=== PATIENT | female | born 2000 | race Caucasian/White ===

== ENCOUNTER 2018-07-26 09:07 | Inpatient (IN) | payer OTHER ==
[2018-07-26] MEDS ORDERED: LORAZEPAM INJ 2 MG/1 ML VIAL IV ONE (09:25)
[2018-07-26 09:33] LABS: ABSOLUTE LYMPHOCYTES (AUTO) 1.6 10^3/uL (0.5-4.7); ABSOLUTE MONOCYTES (AUTO) 0.5 10^3/uL (0.1-1.4); ABSOLUTE NEUT (AUTO) 5.1 10^3/uL (1.7-8.2); BASOPHILS % (AUTO) 0.4 % (0-2); EOSINOPHILS % (AUTO) 0.1 % (0-6); HEMATOCRIT 38.4 % (36.0-47.0); HEMOGLOBIN 13.5 g/dL (12.0-15.5); LYMPHOCYTES % (AUTO) 22.6 % (13-45); MEAN CORPUSCULAR HEMOGLOBIN 30.2 pg (27.0-33.4); MEAN CORPUSCULAR HGB CONC 35.2 g/dL (32.0-36.0); MEAN CORPUSCULAR VOLUME 86 fl (80-97); PLATELET COUNT 267 10^3/uL (150-450); RED BLOOD COUNT 4.47 10^6/uL (3.72-5.28); RED CELL DISTRIBUTION WIDTH 12.3 % (11.5-14.0); SEGMENTED NEUTROPHILS % (AUTO) 69.9 % (42-78); TOTAL CELLS COUNTED % (AUTO) 100 %; WHITE BLOOD COUNT 7.3 10^3/uL (4.0-10.5)
--- NOTE | 2018-07-26 09:39 | ER Document Report ---
ED Psych Disorder / Suicide - General Stated Complaint: POSSIBLE OVERDOSE Time Seen by Provider: 07/26/18 09:30 Notes: Patient brought in because she reportedly took an overdose of her Celexa this morning. She had an argument with her boyfriend and took both Celexa 20 mg and Celexa 10 mg pills about 7 AM this morning. There were unknown quantities of each of these pills, but both of them are completely empty at this time. She also took a large number of Motrin tablets. Patient says that she is from [place] and visiting her boyfriend here who is in the . She denies any history of any medical problems except for depression. Denies ever having s eizures. As I was entering the room to obtain history from the patient, she began a full- blown grand mal seizure. This lasted for about 30 seconds. Her heart rate went up to about 150. O2 sat very temporarily dropped to 40s, but came right back up to normal in the 90s after the patient finished her seizure. She was given 1 mg of Ativan IV as the seizure was ending. Past Medical History - Social History Smoking Status: Unknown if Ever Smoked Family History: Reviewed & Not Pertinent Neurological Medical History: Denies: Hx Seizures Psychiatric Medical History: Reports: Hx Dementia Review of Systems - Review of Systems -: Yes ROS unobtainable due to patient's medical condition - Patient is having a seizure and postictal Physical Exam - Vital signs Vitals: Resp 22 H 07/26/18 09:10 Interpretation: Tachycardic Notes: PHYSICAL EXAMINATION: GENERAL: Actively seizing as I entered the room. Full-blown grand mal seizure. HEAD: Atraumatic, normocephalic. EYES: Pupils equal round and reactive to light, extraocular movements intact. ENT: oropharynx clear without exudates. Moist mucous membranes. NECK: Normal range of motion, supple. LUNGS: Breath sounds clear and equal bilaterally. HEART: Regular rate and rhythm without murmurs. Heart rate 130-140. On monitor its a sinus tach. ABDOMEN: Soft, nontender. No guarding or rebound. No masses. BACK: No tenderness throughout entire back. EXTREMITIES: Normal range of motion without pain. NEUROLOGICAL: Initially, actively grand mal seizure. After that, normal motor, and reflex exams. Bilateral ankle clonus. PSYCH: Normal mood, normal affect. SKIN: Warm, dry, no rashes. Course - Re-evaluation Re-evalutation: 07/26/18 12:39 Patient did not have any further seizures than the one she had at admission. She was awake and alert and answers questions appropriately. Her neurologic exam return to essentially normal except for some mild residual clonus of both lower legs. - Vital Signs Vital signs: Temp Pulse Resp BP Pulse Ox 99.1 F 20 107/68 100 07/26/18 12:01 07/26/18 12:01 07/26/18 12:01 07/26/18 12:01 - Laboratory Result Diagrams: 07/26/18 08:50 07/26/18 08:50 Laboratory results interpreted by me: 07/26/18 07/26/18 08:50 10:06 ABG pH 7.27 L ABG pO2 440.8 H ABG HCO3 16.2 L ABG Total CO2 17.3 L ABG O2 Saturation 99.8 H Carbon Dioxide 20 L BUN 6 L Glucose 119 H AST 41 H Total Protein 8.5 H Salicylates < 1.0 L Acetaminophen < 10 L - EKG Interpretation by Il EKG shows normal: Sinus rhythm Rate: Tachycardia - 105 heart rate Rhythm: NSR Additional EKG results interpreted by me: 07/26/18 09:39 EKG shows a sinus tachycardia at 105. No prolongation of the QT interval. Critical Care Note - Critical Care Note Total time excluding time spent on procedures (mins): 35 Discharge - Discharge Clinical Impression: Overdose, Seizure Condition: Serious Disposition: ADMITTED INPATIENT Admitting Provider: Hospitalist Unit Admitted: [facility]
[2018-07-26] MEDS ORDERED: MIDAZOLAM HCL 50 MG/100 ML RTUINJ IV PRN (09:48)
[2018-07-26 09:57] LABS: ALANINE AMINOTRANSFERASE 14 U/L (9-52); ALBUMIN 4.5 g/dL (3.5-5.0); ALKALINE PHOSPHATASE 64 U/L (38-126); ANION GAP 12 (5-19); ASPARTATE AMINO TRANSFERASE 41 U/L (14-36); BILIRUBIN,DIRECT 0.4 mg/dL (0.0-0.4); BILIRUBIN,TOTAL 0.7 mg/dL (0.2-1.3); BLOOD UREA NITROGEN 6 mg/dL (7-20); CALCIUM 9.9 mg/dL (8.4-10.2); CARBON DIOXIDE 20 mmol/L (22-30); CHLORIDE 106 mmol/L (98-107); GLUCOSE 119 mg/dL (75-110); POTASSIUM 3.8 mmol/L (3.6-5.0); TOTAL PROTEIN 8.5 g/dL (6.3-8.2)
[2018-07-26 10:02] LABS: ACETAMINOPHEN < 10 ug/mL (10-30); ALCOHOL < 10 mg/dL (NONE DETECTED); SALICYLATE < 1.0 mg/dL (2.0-20.0)
[2018-07-26] MEDS ORDERED: LORAZEPAM INJ 2 MG/1 ML VIAL ONE (10:22)
[2018-07-26] MEDS ORDERED: NORMAL SALINE 1000 ML 1,000 ML IV ONE (10:25)
[2018-07-26 10:36] LABS: ARTERIAL BLOOD BASE EXCESS -9.9 mmol/L; ARTERIAL BLOOD FIO2 10L; ARTERIAL BLOOD HCO3 16.2 mmol/L (20-24); ARTERIAL BLOOD O2 SATURATION 99.8 % (94-98); ARTERIAL BLOOD PCO2 36.4 mmHg (35-45); ARTERIAL BLOOD PH 7.27 (7.35-7.45); ARTERIAL BLOOD PO2 440.8 mmHg (80-100); ARTERIAL BLOOD TOTAL CO2 17.3 mmol/L (21-25)
[2018-07-26] MEDS ORDERED: MIDAZOLAM HCL 0 MG/0 ML RTUINJ ONE (10:48)
--- NOTE | 2018-07-26 11:06 | RADIOLOGY REPORT (SQ) ---
EXAM DESCRIPTION: CHEST SINGLE VIEW COMPLETED DATE/TIME: 07/26/2018 10:30 am REASON FOR STUDY: Seizure COMPARISON: None. EXAM PARAMETERS: NUMBER OF VIEWS: One view. TECHNIQUE: Single frontal radiographic view of the chest acquired. RADIATION DOSE: NA LIMITATIONS: None. FINDINGS: LUNGS AND PLEURA: No opacities, masses or pneumothorax. No pleural effusion. MEDIASTINUM AND HILAR STRUCTURES: No masses. Contour normal. HEART AND VASCULAR STRUCTURES: Heart normal in size. Normal vasculature. BONES: No acute findings. HARDWARE: None in the chest. OTHER: No other significant finding. IMPRESSION: NO ACUTE RADIOGRAPHIC FINDING IN THE CHEST. TECHNICAL DOCUMENTATION: JOB ID: [id number] [employer]- All Rights Reserved Reading location - IP/workstation name: [email or web address]
--- NOTE | 2018-07-26 11:14 | RADIOLOGY REPORT (SQ) ---
EXAM DESCRIPTION: CT HEAD WITHOUT COMPLETED DATE/TIME: 07/26/2018 11:05 am REASON FOR STUDY: seizure COMPARISON: None. TECHNIQUE: Axial images acquired through the brain without intravenous contrast. Images reviewed wi th bone, brain and subdural windows. Additional sagittal and coronal reconstructions were generated. Images stored on PACS. All CT scanners at this facility use dose modulation, iterative reconstruction, and/or weight based d osing when appropriate to reduce radiation dose to as low as reasonably achievable (ALARA). [facility]: Dose Right [facility]: CareDose [facility]: Dose Right [facility]: Teradose 4D [facility]: [facility] RADIATION DOSE: CT Rad equipment meets quality standard of care and radiation dose reduction techniq ues were employed. CTDIvol: 53.2 mGy. DLP: 991 mGy-cm. mGy. LIMITATIONS: None. FINDINGS: VENTRICLES: Normal size and contour. CEREBRUM: No masses. No hemorrhage. No midline shift. No evidence for acute infarction. Normal gra y/white matter differentiation. No areas of low density in the white matter. CEREBELLUM: No masses. No hemorrhage. No alteration of density. No evidence for acute infarction. EXTRAAXIAL SPACES: No fluid collections. No masses. ORBITS AND GLOBE: No intra- or extraconal masses. Normal contour of globe without masses. CALVARIUM: No fracture. PARANASAL SINUSES: No fluid or mucosal thickening. SOFT TISSUES: No mass or hematoma. OTHER: No other significant finding. IMPRESSION: NORMAL BRAIN CT WITHOUT CONTRAST. EVIDENCE OF ACUTE STROKE: NO. COMMENT: Quality ID # [id number]: Final reports with documentation of one or more dose reduction techniques (e.g., Automated exposure control, adjustment of the mA and/or kV according to patient size, use of iterative reconstruction technique) TECHNICAL DOCUMENTATION: JOB ID: [id number] [employer]- All Rights Reserved Reading location - IP/workstation name: [email or web address]
[2018-07-26] MEDS ORDERED: ONDANSETRON HCL INJ/PF 4 MG/2 ML SDV IV PRN (12:33)
[2018-07-26] MEDS ORDERED: ACETAMINOPHEN 325 MG TABLET PO PRN (12:33)
--- NOTE | 2018-07-26 12:33 | PDOC H&P ---
History of Present Illness History of Present Illness: ELE GASTON is a 18 year old female patient with no significant medical history except for depression presented to ER after she overdosed herself. Since patient is deeply sedated with diazepam after she witnessed in ER having generalized tonic-clonic seizure. Brief history is obtained from the ER attending. Per ER attending she had an argument with her boyfriend and took because Celexa 20 mg and Celexa 10 mg twice about 7 AM this morning. There were unknown quantities of each of these previous, but because of them are completely empty when patient is found. She also took a large number of Motrin tablets. Reportedly patient came down to [place] from [place] to visit her boyfriend who is in the . Her initial blood work is unremarkable and her ABG shows mild acidosis. Her CT scan of the head is negative for acute intracranial process. Review of system and detailed history is unobtainable. Psych consulted by ER attending to evaluate this patient. Past Medical History Neurological Medical History: Denies: Seizures Psychiatric Medical History: Reports: Depression Social History Smoking Status: Unknown if Ever Smoked - Advance Directive Resuscitation Status: Full Code Family History Family History: Reviewed & Not Pertinent Parental Family History Reviewed: Yes Children Family History Reviewed: Yes Sibling(s) Family History Reviewed.: Yes Review of Systems ROS unobtainable: Due to mental status Physical Exam Vital Signs: Temp Pulse Resp BP Pulse Ox 99.1 F 20 107/68 100 07/26/18 12:01 07/26/18 12:01 07/26/18 12:01 07/26/18 12:01 General appearance: PRESENT: no acute distress Eye exam: PRESENT: conjunctiva pink Mouth exam: PRESENT: dry mucosa Neck exam: ABSENT: carotid bruit, JVD, lymphadenopathy, thyromegaly Respiratory exam: PRESENT: clear to auscultation landry. ABSENT: rales, rhonchi, wheezes Cardiovascular exam: PRESENT: RRR. ABSENT: diastolic murmur, rubs, systolic murmur Neurological exam: PRESENT: other - Patient arousable to verbal stimuli but she falls back to sleep immediately. Results Laboratory Results: 07/26/18 08:50 07/26/18 08:50 07/26/18 07/26/18 07/26/18 08:50 08:50 08:50 WBC 7.3 RBC 4.47 Hgb 13.5 Hct 38.4 MCV 86 MCH 30.2 MCHC 35.2 RDW 12.3 Plt Count 267 Seg Neutrophils % 69.9 Lymphocytes % 22.6 Monocytes % 7.0 Eosinophils % 0.1 Basophils % 0.4 Absolute Neutrophils 5.1 Absolute Lymphocytes 1.6 Absolute Monocytes 0.5 Absolute Eosinophils 0.0 Absolute Basophils 0.0 Carbonic Acid HCO3/H2CO3 Ratio ABG pH ABG pCO2 ABG pO2 ABG HCO3 ABG O2 Saturation ABG Base Excess FiO2 Sodium 138.0 Potassium 3.8 Chloride 106 Carbon Dioxide 20 L Anion Gap 12 BUN 6 L Creatinine 0.56 Est GFR ( Amer) > 60 Est GFR (Non-Af Amer) > 60 Glucose 119 H Calcium 9.9 Magnesium Total Bilirubin 0.7 AST 41 H ALT 14 Alkaline Phosphatase 64 Total Protein 8.5 H Albumin 4.5 Serum HCG, Qual Cancelled 07/26/18 07/26/18 07/26/18 08:50 09:55 10:06 WBC RBC Hgb Hct MCV MCH MCHC RDW Plt Count Seg Neutrophils % Lymphocytes % Monocytes % Eosinophils % Basophils % Absolute Neutrophils Absolute Lymphocytes Absolute Monocytes Absolute Eosinophils Absolute Basophils Carbonic Acid 1.10 HCO3/H2CO3 Ratio 14:1 ABG pH 7.27 L ABG pCO2 36.4 ABG pO2 440.8 H ABG HCO3 16.2 L ABG O2 Saturation 99.8 H ABG Base Excess -9.9 FiO2 10L Sodium Potassium Chloride Carbon Dioxide Anion Gap BUN Creatinine Est GFR ( Amer) Est GFR (Non-Af Amer) Glucose Calcium Magnesium 2.0 Total Bilirubin AST ALT Alkaline Phosphatase Total Protein Albumin Serum HCG, Qual NEGATIVE Impressions: Head CT 07/26/18 00:00 IMPRESSION: NORMAL BRAIN CT WITHOUT CONTRAST. EVIDENCE OF ACUTE STROKE: NO. Chest X-Ray 07/26/18 09:31 IMPRESSION: NO ACUTE RADIOGRAPHIC FINDING IN THE CHEST. Assessment and Plan - Diagnosis (1) Drug overdose, intentional Qualifiers: Encounter type: initial encounter Qualified Code(s): T50.902A - Poisoning by unspecified drugs, medicaments and biological substances, intentional self- harm, initial encounter Is this a current diagnosis for this admission?: Yes Plan: We will admit the patient. Monitor her. We will hydrate her adequately. Psych has been consulted by ER attending. (2) New onset seizure Is this a current diagnosis for this admission?: Yes Plan: Related to drug overdose. I will put her on Keppra. Since this usually provoked I think there is no need to continue the Keppra once she is stabilized. (3) History of depression Is this a current diagnosis for this admission?: Yes Plan: Follow-up with her primary psychiatrist and primary care physician.
[2018-07-26] MEDS ORDERED: LORAZEPAM INJ 2 MG/1 ML VIAL IV PRN (12:40)
--- NOTE | 2018-07-26 12:59 | EKG REPORT ---
SEVERITY:- BORDERLINE ECG - SINUS TACHYCARDIA BORDERLINE T ABNORMALITIES, INFERIOR LEADS : Confirmed by: Gustavo Mcintosh MD 26-Jul-2018 12:59:12
[2018-07-26] MEDS ORDERED: LEVETIRACETAM 1000 MG/NACL-ISO 1,000 MG/100 ML RTUPB IV ONE (13:15)
[2018-07-26] MEDS: NORMAL SALINE 1000 ML 1,000 ML IV PRN ×2 (13:34→23:55)
[2018-07-26] MEDS: ENOXAPARIN SODIUM INJ 40 MG/0.4 ML DISP.SYRIN SUBCUT SCH (13:34)
[2018-07-26 13:41] LABS: APPEARANCE,URINE CLEAR; BILIRUBIN,URINE NEGATIVE (NEGATIVE); COLOR,URINE STRAW; GLUCOSE, URINE NEGATIVE (NEGATIVE); KETONES,URINE NEGATIVE (NEGATIVE); LEUKOCYTE ESTERASE,URINE NEGATIVE (NEGATIVE); NITRITE,URINE NEGATIVE (NEGATIVE); PROTEIN,URINE NEGATIVE (NEGATIVE); URINE SPECIFIC GRAVITY 1.006; UROBILINOGEN,URINE NEGATIVE mg/dL (<2.0)
[2018-07-26 14:00] LABS: URINE AMPHETAMINES SCREEN NEGATIVE; URINE BARBITURATES SCREEN NEGATIVE; URINE BENZODIAZEPINES SCREEN NEGATIVE; URINE COCAINE SCREEN NEGATIVE; URINE MARIJUANA (THC) SCREEN NEGATIVE; URINE METHADONE SCREEN NEGATIVE; URINE PHENCYCLIDINE SCREEN NEGATIVE
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
[2018-07-26] MEDS: LEVETIRACETAM 500 MG TABLET PO SCH (21:29)
[2018-07-26] MEDS: FAMOTIDINE 20 MG TABLET PO SCH (21:29)
[2018-07-27 05:26] LABS: HEMATOCRIT 34.3 % (36.0-47.0); HEMOGLOBIN 11.7 g/dL (12.0-15.5); MEAN CORPUSCULAR HGB CONC 34.3 g/dL (32.0-36.0); MEAN CORPUSCULAR VOLUME 88 fl (80-97); PLATELET COUNT 216 10^3/uL (150-450); RED BLOOD COUNT 3.92 10^6/uL (3.72-5.28); RED CELL DISTRIBUTION WIDTH 12.8 % (11.5-14.0); WHITE BLOOD COUNT 6.6 10^3/uL (4.0-10.5)
[2018-07-27 05:48] LABS: ALANINE AMINOTRANSFERASE 23 U/L (9-52); ALBUMIN 3.2 g/dL (3.5-5.0); ALKALINE PHOSPHATASE 46 U/L (38-126); ANION GAP 7 (5-19); ASPARTATE AMINO TRANSFERASE 17 U/L (14-36); BILIRUBIN,DIRECT 0.3 mg/dL (0.0-0.4); BILIRUBIN,TOTAL 0.8 mg/dL (0.2-1.3); BLOOD UREA NITROGEN 2 mg/dL (7-20); CALCIUM 8.4 mg/dL (8.4-10.2); CARBON DIOXIDE 20 mmol/L (22-30); CHLORIDE 111 mmol/L (98-107); POTASSIUM 3.7 mmol/L (3.6-5.0); SODIUM 138.1 mmol/L (137-145); TOTAL PROTEIN 6.1 g/dL (6.3-8.2)
[2018-07-27 05:53] LABS: GLUCOSE 57 mg/dL (75-110)
[2018-07-27] MEDS: NORMAL SALINE 1000 ML 1,000 ML IV PRN ×4 (06:55→21:46)
[2018-07-27] MEDS: LEVETIRACETAM 500 MG TABLET PO SCH ×2 (09:26→21:07)
[2018-07-27] MEDS: FAMOTIDINE 20 MG TABLET PO SCH ×2 (09:26→21:07)
[2018-07-27] MEDS: ENOXAPARIN SODIUM INJ 40 MG/0.4 ML DISP.SYRIN SUBCUT SCH (09:26)
--- NOTE | 2018-07-27 17:32 | EKG REPORT ---
SEVERITY:- NORMAL ECG - SINUS RHYTHM : Confirmed by: Gustavo Mcintosh MD 27-Jul-2018 17:32:08
--- NOTE | 2018-07-27 21:49 | PDOC PROGRESS REPORT ---
Subjective Progress Note for:: 07/27/18 Subjective:: 18 y.o. F with H anxiery and depression admitted to [facility] for an intentional overdose of Celexa and Motrin. She had a witnessed grand mal seizure while in the ED. The patient was seen this morning with parents at bedside. She is resting comfortably in bed on room air. The patient denies feeling suicidal at the time of our interview. Mother reports she would like to bring her daughter back to [place]. Informed the family that once the patient is medically cleared, the patient will likely need inpatient psych treatment but that someone from [facility] would make that final decision. Dr. Irving has been consulted. The patient is awake and oriented. Follows commands. Answers questions appropriately. PERRLA. EKG this morning shows NSR with no ischemia or infarction. QTc is 431. The patient is now 24 hours post-ingestion. Discussed her case with [place] Poison Control, they stated there were no other guidelines for monitoring at this time. Vital signs have remained stable. The patient is considered medically cleared and may be discharged tomorrow to an inpatient PSYCH facility Reason For Visit: DRUG OVERDOSE WITH SUICIDAL INTENTION. NEW ONSET Physical Exam Vital Signs: Temp Pulse Resp BP Pulse Ox 98.3 F 61 20 126/79 H 100 07/27/18 20:18 07/27/18 20:18 07/27/18 20:18 07/27/18 20:18 07/27/18 20:18 Intake & Output 07/26/18 07/27/18 07/28/18 06:59 06:59 06:59 Intake Total 3100 2858 Output Total 1800 3700 Balance 1300 -842 Weight 50.4 kg General appearance: PRESENT: no acute distress, thin, well-developed, well- nourished Head exam: PRESENT: atraumatic, normocephalic Eye exam: PRESENT: conjunctiva pink, EOMI, PERRLA. ABSENT: scleral icterus Ear exam: PRESENT: normal external ear exam Mouth exam: PRESENT: moist, tongue midline Neck exam: ABSENT: carotid bruit, JVD, lymphadenopathy, thyromegaly Respiratory exam: PRESENT: clear to auscultation landry, symmetrical, unlabored. ABSENT: rales, rhonchi, wheezes Cardiovascular exam: PRESENT: RRR. ABSENT: diastolic murmur, rubs, systolic murmur Pulses: PRESENT: normal radial pulses, normal dorsalis pedis pul Vascular exam: PRESENT: normal capillary refill GI/Abdominal exam: PRESENT: normal bowel sounds, soft. ABSENT: distended, guarding, mass, organolmegaly, rebound, tenderness Rectal exam: PRESENT: deferred Extremities exam: PRESENT: full ROM. ABSENT: calf tenderness, clubbing, pedal edema Neurological exam: PRESENT: alert, awake, oriented to person, oriented to place, oriented to time, oriented to situation. ABSENT: motor sensory deficit Psychiatric exam: PRESENT: flat affect. ABSENT: homicidal ideation, suicidal ideation Skin exam: PRESENT: dry, intact, warm. ABSENT: cyanosis, rash Results Laboratory Results: 07/27/18 04:33 07/27/18 04:33 07/27/18 07/27/18 04:33 04:33 WBC 6.6 RBC 3.92 Hgb 11.7 L Hct 34.3 L MCV 88 MCH 30.0 MCHC 34.3 RDW 12.8 Plt Count 216 Sodium 138.1 Potassium 3.7 Chloride 111 H Carbon Dioxide 20 L Anion Gap 7 BUN 2 L Creatinine 0.61 Est GFR ( Amer) > 60 Est GFR (Non-Af Amer) > 60 Glucose 57 L Calcium 8.4 Total Bilirubin 0.8 AST 17 ALT 23 Alkaline Phosphatase 46 Total Protein 6.1 L Albumin 3.2 L Impressions: Head CT 07/26/18 00:00 IMPRESSION: NORMAL BRAIN CT WITHOUT CONTRAST. EVIDENCE OF ACUTE STROKE: NO. Chest X-Ray 07/26/18 09:31 IMPRESSION: NO ACUTE RADIOGRAPHIC FINDING IN THE CHEST. Status: Imported from PACS Assessment and Plan - Diagnosis (1) Drug overdose, intentional Qualifiers: Encounter type: initial encounter Qualified Code(s): T50.902A - Poisoning by unspecified drugs, medicaments and biological substances, intentional self- harm, initial encounter Is this a current diagnosis for this admission?: Yes Plan: Intentional OD on Celexa and Motrn Uncear # of pills ingested Poison Control originally notified by EMS, have been following patient throughout hospital stay 24 hours monitoring following ingestion EKG shows NSR, no infarction or ischemis, normal QTc (2) New onset seizure Is this a current diagnosis for this admission?: Yes Plan: Probably provoked by overdose Continue PO Keppra while inpatient No need to continue the Keppra post-discharge (3) History of depression Is this a current diagnosis for this admission?: Yes Plan: Started on Celexa 3 weeks ago by PCP Previously seeing a 'therapist' [facility] - Time Time Spent with patient: 15-24 minutes Medications reviewed and adjusted accordingly: Yes Anticipated discharge: Other Within: within 24 hours - Inpatient Certification Based on my medical assessment, after consideration of the patient's com orbidities, presenting symptoms, or acuity I expect that the services needed warrant INPATIENT care.: Yes I certify that my determination is in accordance with my understanding of Medicare's requirements for reasonable and necessary INPATIENT services [42 CFR 412.3e].: Yes Medical Necessity: Risk of Complication if Not Cared For in Hospital
[2018-07-28] MEDS: NORMAL SALINE 1000 ML 1,000 ML IV PRN (03:02)
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
[2018-07-28] MEDS: LEVETIRACETAM 500 MG TABLET PO SCH (09:46)
[2018-07-28] MEDS: FAMOTIDINE 20 MG TABLET PO SCH (09:46)
[2018-07-28] MEDS: ENOXAPARIN SODIUM INJ 40 MG/0.4 ML DISP.SYRIN SUBCUT SCH (09:46)
[2018-07-28 12:03] VITALS: BP 112/71
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
== END 2018-07-28 13:40 | DRG 918 ==
LOC: ER 09:07 → EH 12:39 → 3N 15:30
PROVIDERS: ADMIT Internal Medicine; ATTEND Internal Medicine
DX: T43.222A Poisoning by selective serotonin reuptake inhibitors, intentional self-harm, initial encounter (principal); T39.312A Poisoning by propionic acid derivatives, intentional self-harm, initial encounter; F03.90 Unspecified dementia, unspecified severity, without behavioral disturbance, psychotic disturbance, mood disturbance, and anxiety; F41.9 Anxiety disorder, unspecified; F32.9 Major depressive disorder, single episode, unspecified; G40.909 Epilepsy, unspecified, not intractable, without status epilepticus
CPT/HCPCS: 36415; 51702; 70450; 71045; 80053; 80307; 81001; 82803; 82962; 83735; 84703; 85025; 85027; 93005; 93010; 96361; 96374; 99291; J1650; J1953; J2060; J7030